=== PATIENT | male | born 1960 | race Caucasian/White ===

== ENCOUNTER → 2019-12-28 | Outpatient (CLI) | payer OTHER ==
--- NOTE | 2019-12-28 12:15 | MRI ---
EXAM DESCRIPTION: Knee,Right: MRI. CLINICAL HISTORY: 59 years Male MEDIAL MENISCUS TEAR COMPARISON: Radiographs right knee at local urgent care clinic, December 19. TECHNIQUE: Multiplanar, high-field MRI, multiple sequences, without contrast: Right knee. FINDINGS: Abnormal signal in the posterior horn of the medial meniscus extending to the inferior articular surface. Small free edge defect in the body of the meniscus and degenerative signal in the anterior horn. Moderate chondromalacia medial compartment with no subchondral edema. Normal signal lateral meniscus. Grade I chondromalacia with minimal joint effusion and no subchondral edema. Intermediate signal in the anterior cruciate ligament which remains taut in extension. Minimal intra-cruciate space effusion. Medial collateral ligament and elements of the lateral collateral ligament complex are intact. Possible desiccation of the femoral insertion of the fibular collateral ligament. Grade 4 chondrosis medial patellar facet with subchondral edema. Suprapatellar effusion and superior patellar plica. Medial lateral patellar soft tissue restraints are intact. Minimal soft tissue edema prepatellar bursa. Effusion surrounding Hoffa's fat pad IMPRESSION: 1. Inferior tear posterior horn medial meniscus. Free edge tear body of the medial meniscus. Mild to moderate chondromalacia medial compartment. Minimal lateral compartment effusion. 2. Grade 1 sprain/desiccation of the anterior cruciate ligament and the fibular collateral ligament. Minimal effusion in the intra-cruciate space. 3. Grade 4 chondrosis medial patellar facet. Suprapatellar effusion. Superior patellar plica. Effusion around the infrapatellar fat pad and prepatellar bursitis. Electronically signed by: Pee Reddy MD 12/28/2019 12:14 PM CDT
== END ==
LOC: MRI 08:00
PROVIDERS: ATTEND Nurse Practitioner Family
DX: S83.241A Other tear of medial meniscus, current injury, right knee, initial encounter (principal); S83.511A Sprain of anterior cruciate ligament of right knee, initial encounter; S83.401A Sprain of unspecified collateral ligament of right knee, initial encounter; M94.261 Chondromalacia, right knee; M25.461 Effusion, right knee; M67.51 Plica syndrome, right knee; M70.51 Other bursitis of knee, right knee

== ENCOUNTER → 2020-08-14 | Outpatient (CLI) | payer OTHER ==
--- NOTE | 2020-08-15 10:08 | MRI ---
Study: MRI of the Right Knee. Indication: TEAR OF MEDIAL MENISCUS CURRENT INJURY RIGHT KNEE Technique: Multiplanar, multi sequence MRI of the right knee was obtained without intravenous contrast. Comparison: December 28, 2019 Findings: ACL, PCL, and lateral collateral ligament complex intact. MCL is lax and bowed indicating sequela of a prior MCL sprain. No acute tear. Interval free edge debridement/surgical repair of the posterior horn and body medial meniscus. The body is extruded by 4 mm. Heterogeneous increased PD signal noted throughout the meniscus and most pronounced at the body which is attenuated by 50%. No fluid-filled tear defect is identified. Progressive grade 4 chondrosis, cortical remodeling, and subchondral marrow change of the anteromedial margins of the medial compartment noted. Mild free edge truncation posterior horn and body lateral meniscus with recurrent tear. Grade 2 and mild grade 3 chondrosis lateral compartment. Tendinosis quadriceps tendon insertion as well as patellar tendon origin and insertion with enthesophyte formation. Patella normally located. Grade 3 chondral fibrillation junction lateral patellar facet and apex. Moderate size knee effusion. No acute fracture. Scattered anterior subcutaneous edema. Impression: Postsurgical changes and attenuation of the medial meniscus without recurrent fluid-filled tear. Prior free edge and debridement lateral meniscus without recurrent tear. Tricompartment chondrosis, most pronounced at the anteromedial aspects of the medial compartment where there is progressed grade 4 chondrosis, cortical remodeling, and subchondral marrow change. Moderate size knee effusion. Additional findings as above. Electronically signed by: Bogdan Preston MD 08/15/2020 10:06 AM [employer]
== END ==
LOC: MRI 13:52
PROVIDERS: ATTEND Orthopaedic Surgery
DX: S83.241D Other tear of medial meniscus, current injury, right knee, subsequent encounter (principal); Z98.890 Other specified postprocedural states; M94.261 Chondromalacia, right knee; M76.891 Other specified enthesopathies of right lower limb, excluding foot; M25.461 Effusion, right knee